=== PATIENT | female | born 1980 | race Caucasian/White ===

== ENCOUNTER 2016-05-08 10:21 | Emergency (ER) | payer MEDICAID ==
[~2016-05-08] VITALS: Ht 175.3 cm; Wt 93.2 kg
[~2016-05-08 10:21] MED LIST: ATIVAN 0.50.5 MG/TAB PO; AVIANE; BUSPAR DIVIDOSE15 MG PO; BUT/APAP/CAFF/C1 CAP PO; CELEXA; CELEXA10 MG PO; CELEXA40 MG PO; CITALOPRAM HYDR40 MG PO; CYMBALTA30 MG PO; EFFEXOR 3737.5 MG/TA PO; FERROUS SULFATE65 MG PO; KLONOPIN 0.5MG0.5 MG; LEXAPRO10 MG PO; LORTAB 5/500 501 TAB PO; MIRENA52 MG IU; MOTRIN 600600 MG/TAB PO; MULTIPLE VITAMI1 CAP PO; NO HOME MEDICATIONS; NORCO 325 MG-51 TAB PO; NUVARING1 ICR; PAMINE2.5 MG PO; PERCOCET 325 MG1 TA2 PO; PHENERGAN 25 TA25 MG PO; PHENERGAN25 MG; PHENERGAN25 MG RC; PRENATAL VITAMI1 TA5 PO; PRENATAL1 TA4 PO; PROTONIX20 MG PO; REGLAN 10MG/11 MG/ML; REGLAN 10MG10 MG/TAB PO; SINGULAIR10 MG PO; TOPAMAX50 MG PO; TYLENOL 500MG500 MG PO; VALIUM5 MG PO; VENTOLIN0.09 MG IH; WELLBUTRIN XL300 M1; ZOFRAN 4MG T4 MG/TAB PO; ZOFRAN ODT4 MG PO; ZOLOFT 50MG50 MG; [UNRECOGNIZED DRUG - OTHER] PO
[2016-05-08 10:25] VITALS: BP 134/70; PULSE 77; TEMP 99
[2016-05-08] MEDS ORDERED: PRISTIQ100 MG PO (10:44)
[2016-05-08] MEDS ORDERED: TAMIFLU 75MG75 MG PO (10:52)
== END 2016-05-08 11:24 | disposition home or self-care (01) ==
LOC: COL.ER 10:21
DX: J11.1 Influenza due to unidentified influenza virus with other respiratory manifestations (principal)

== ENCOUNTER → 2016-10-04 | Outpatient (CLI) | payer BC ==
[~2016-10-04] MED LIST changes: +PRISTIQ100 MG PO; +TAMIFLU 75MG75 MG PO
== END ==
LOC: COL.LAB 09-29 14:15
DX: Z00.5 Encounter for examination of potential donor of organ and tissue (principal)

== ENCOUNTER → 2017-01-12 | Outpatient (CLI) | payer BC | LOC: COL.LAB 13:36 | DX: Z00.5 Encounter for examination of potential donor of organ and tissue (principal) ==

== ENCOUNTER 2017-05-23 18:53 | Emergency (ER) | payer MEDICAID ==
[~2017-05-23] VITALS: Ht 175.3 cm; Wt 106.8 kg
[2017-05-23 19:01] VITALS: TEMP 99.3
[2017-05-23] MEDS ORDERED: FIORINAL 325 MG1 CAP PO (21:20)
[2017-05-23] MEDS ORDERED: XANAX 0.5MG0.5 MG PO (21:21)
[2017-05-23 21:41] LABS: BASO % 0.2 % (0.0-2.0); EOS % 0.1 % (0-4.0); GRAN # 12.2 (1.4-6.5); GRAN % 94.2 % (42.2-75.2); HEMATOCRIT 46.3 % (37.0-47.0); HEMOGLOBIN 15.3 g/dl (12.5-16.0); LYMPH # 0.3 (1.2-3.4); LYMPH % 1.9 % (20.0-51.0); MEAN CELL VOLUME 87 fl (80.0-100.0); MEAN CORPUSCULAR HEMOGLOBIN 29 pg (27.0-31.0); MEAN CORPUSCULAR HGB CONC 33 g/dl (33.0-37.0); MEAN PLATELET VOLUME 10.3 fl (7.4-10.4); MONO # 0.4 (0.1-0.6); MONO % 3.4 % (1.7-9.3); PLATELET COUNT 215 K/mm3 (130-400); RED BLOOD COUNT 5.33 M/mm3 (4.10-5.30); REDCELL DISTRIBUTION WIDTH-CV 12.8 % (11.5-14.5)
[2017-05-23 21:51] LABS: ALBUMIN 4.9 gm/dL (3.5-5.0); BILIRUBIN,TOTAL 0.6 mg/dL (0.0-1.0); CREATININE, serum 0.86 mg/dL (0.52-1.25); TOTAL PROTEIN 7.6 gm/dL (6.4-8.2)
[2017-05-23] MEDS ORDERED: ZOFRAN ODT4 MG PO (22:26)
[2017-05-23 23:05] VITALS: BP 114/76; PULSE 87
== END 2017-05-23 23:06 | disposition home or self-care (01) ==
LOC: COL.ER 18:53
PROVIDERS: Emergency Medicine
DX: G43.909 Migraine, unspecified, not intractable, without status migrainosus (principal); R11.2 Nausea with vomiting, unspecified; F32.9 Major depressive disorder, single episode, unspecified; F41.9 Anxiety disorder, unspecified; Z88.2 Allergy status to sulfonamides
CPT/HCPCS: J1885; J2060; J2405; J2550; J7030

== ENCOUNTER 2018-08-25 10:37 | Emergency (ER) | payer MEDICAID ==
[~2018-08-25] VITALS: Ht 175.3 cm; Wt 112.3 kg
[~2018-08-25 10:37] MED LIST changes: +FIORINAL 325 MG1 CAP PO; +XANAX 0.5MG0.5 MG PO
[2018-08-25 10:43] VITALS: TEMP 99.2
[2018-08-25 11:43] LABS: BASO % 0.4 % (0.0-2.0); EOS # 0.1 (0.0-0.7); EOS % 0.9 % (0-4.0); GRAN # 3.9 (1.4-6.5); GRAN % 57.6 % (42.2-75.2); HEMATOCRIT 39.2 % (37.0-47.0); HEMOGLOBIN 12.8 g/dl (12.5-16.0); LYMPH # 2.1 (1.2-3.4); MEAN CELL VOLUME 88 fl (80.0-100.0); MEAN CORPUSCULAR HEMOGLOBIN 29 pg (27.0-31.0); MEAN CORPUSCULAR HGB CONC 33 g/dl (33.0-37.0); MEAN PLATELET VOLUME 10.4 fl (7.4-10.4); MONO # 0.7 (0.1-0.6); PLATELET COUNT 238 K/mm3 (130-400); RED BLOOD COUNT 4.45 M/mm3 (4.10-5.30)
[2018-08-25 11:50] LABS: ALANINE AMINOTRANSFERASE 26 U/L (9-52); ALBUMIN 4.2 gm/dL (3.5-5.0); ALKALINE PHOSPHATASE 52 U/L (50-136); ANION GAP 9 mmol/L (7-16); AST,SGOT 45 U/L (15-37); BILIRUBIN,TOTAL 0.3 mg/dL (0.0-1.0); BLOOD UREA NITROGEN 12 mg/dL (7-17); CARBON DIOXIDE 26 mmol/L (22-30); CHLORIDE 103 mmol/L (98-107); CREATININE, serum 0.72 (0.52-1.25); GLUCOSE 94 mg/dL (74-106); POTASSIUM 3.9 mmol/L (3.4-5.0); SODIUM 138 mmol/L (137-145); TOTAL PROTEIN 7.4 gm/dL (6.4-8.2)
[2018-08-25 12:05] LABS: TROPONIN-I < 0.012 ng/mL (0.000-0.035)
[2018-08-25 12:53] VITALS: BP 126/85; PULSE 75
== END 2018-08-25 12:53 | disposition home or self-care (01) ==
LOC: COL.ER 10:37
PROVIDERS: Emergency Medicine
DX: R20.2 Paresthesia of skin (principal); F41.9 Anxiety disorder, unspecified; Z79.82 Long term (current) use of aspirin
CPT/HCPCS: J2060; J2405; J7030

== ENCOUNTER 2019-04-09 09:09 | Emergency (ER) | payer MEDICAID ==
[~2019-04-09] VITALS: Ht 175.3 cm; Wt 100.0 kg
[2019-04-09 10:05] LABS: BASO % 0.5 % (0.0-2.0); EOS # 0.1 (0.0-0.7); EOS % 0.9 % (0-4.0); GRAN # 4.5 (1.4-6.5); GRAN % 69.5 % (42.2-75.2); HEMATOCRIT 43.8 % (37.0-47.0); HEMOGLOBIN 14.3 g/dl (12.5-16.0); LYMPH # 1.4 (1.2-3.4); LYMPH % 21.5 % (20.0-51.0); MEAN CELL VOLUME 88 fl (80.0-100.0); MEAN CORPUSCULAR HEMOGLOBIN 29 pg (27.0-31.0); MEAN CORPUSCULAR HGB CONC 33 g/dl (33.0-37.0); MEAN PLATELET VOLUME 10.4 fl (7.4-10.4); MONO # 0.5 (0.1-0.6); MONO % 7.3 % (1.7-9.3); PLATELET COUNT 238 K/mm3 (130-400); RED BLOOD COUNT 4.99 M/mm3 (4.10-5.30); REDCELL DISTRIBUTION WIDTH-CV 12.5 % (11.5-14.5)
[2019-04-09 10:51] LABS: ALANINE AMINOTRANSFERASE 19 U/L (9-52); ALBUMIN 4.6 gm/dL (3.5-5.0); ALKALINE PHOSPHATASE 57 U/L (50-136); ANION GAP 8 mmol/L (7-16); AST,SGOT 16 U/L (15-37); BILIRUBIN,TOTAL 0.5 mg/dL (0.0-1.0); BLOOD UREA NITROGEN 10 mg/dL (7-17); CALCIUM 9.4 mg/dL (8.4-10.2); CARBON DIOXIDE 28 mmol/L (22-30); CHLORIDE 104 mmol/L (98-107); GLUCOSE 105 mg/dL (74-106); POTASSIUM 4.1 mmol/L (3.4-5.0); SODIUM 141 mmol/L (137-145); TOTAL PROTEIN 7.4 gm/dL (6.4-8.2)
[2019-04-09 11:03] LABS: TROPONIN-I < 0.012 ng/mL (0.000-0.035)
[2019-04-09 11:15] LABS: COLLECTION METHOD CLEAN CATCH
[2019-04-09 11:49] LABS: MUCOUS Present /lpf; PH 5 (5-8); URINE APPEARANCE Cloudy; URINE BACTERIA None Seen /hpf; URINE BILIRUBIN Negative (NEGATIVE); URINE BLOOD Negative (NEGATIVE); URINE COLOR Yellow; URINE GLUCOSE Negative (NEGATIVE); URINE KETONE 1+ (NEGATIVE); URINE LEUKOCYTE ESTERASE Trace (NEGATIVE); URINE NITRATE Negative (NEGATIVE); URINE PROTEIN(semi-quant) 1+ (NEGATIVE); URINE RBC 0-2 /hpf; URINE UROBILINOGEN Negative (NEGATIVE)
[2019-04-09] MEDS ORDERED: OMNICEF 300MG300 MG PO (13:10)
[2019-04-09] MEDS ORDERED: ZOFRAN ODT8 MG PO (13:20)
[2019-04-09 13:30] VITALS: BP 118/76; PULSE 76; TEMP 98.6
[2019-04-10] MEDS ORDERED: ANTIVERT 12.512.5 MG PO (15:44)
== END 2019-04-09 13:30 | disposition home or self-care (01) ==
LOC: COL.ER 09:09
PROVIDERS: Emergency Medicine
DX: N39.0 Urinary tract infection, site not specified (principal); Z79.82 Long term (current) use of aspirin
CPT/HCPCS: A4216; J0696; J1885; J2270; J2405; J2550; J7030

== ENCOUNTER 2019-04-10 13:38 | Emergency (ER) | payer MEDICAID ==
[~2019-04-10] VITALS: Ht 175.3 cm; Wt 104.5 kg
[~2019-04-10 13:38] MED LIST changes: +OMNICEF 300MG300 MG PO; +ZOFRAN ODT8 MG PO
[2019-04-10 13:53] VITALS: BP 142/77; TEMP 98.5
[2019-04-10 15:03] LABS: ALANINE AMINOTRANSFERASE 19 U/L (9-52); ALBUMIN 4.1 gm/dL (3.5-5.0); ALKALINE PHOSPHATASE 46 U/L (50-136); ANION GAP 7 mmol/L (7-16); AST,SGOT 19 U/L (15-37); BILIRUBIN,TOTAL 0.4 mg/dL (0.0-1.0); BLOOD UREA NITROGEN 10 mg/dL (7-17); CARBON DIOXIDE 28 mmol/L (22-30); CHLORIDE 107 mmol/L (98-107); GLUCOSE 94 mg/dL (74-106); POTASSIUM 4.2 mmol/L (3.4-5.0); SODIUM 141 mmol/L (137-145); TOTAL PROTEIN 6.7 gm/dL (6.4-8.2)
[2019-04-10 15:11] LABS: C-REACTIVE PROTEIN < 0.5 mg/dL (0.0-0.9)
[2019-04-10 15:21] LABS: BASO % 0.6 % (0.0-2.0); EOS # 0.1 (0.0-0.7); EOS % 1.1 % (0-4.0); GRAN # 3.4 (1.4-6.5); HEMATOCRIT 40.2 % (37.0-47.0); LYMPH # 1.4 (1.2-3.4); LYMPH % 26.1 % (20.0-51.0); MEAN CELL VOLUME 88 fl (80.0-100.0); MEAN CORPUSCULAR HEMOGLOBIN 29 pg (27.0-31.0); MEAN CORPUSCULAR HGB CONC 32 g/dl (33.0-37.0); MEAN PLATELET VOLUME 10.8 fl (7.4-10.4); MONO # 0.4 (0.1-0.6); PLATELET COUNT 222 K/mm3 (130-400); RED BLOOD COUNT 4.56 M/mm3 (4.10-5.30); REDCELL DISTRIBUTION WIDTH-CV 12.5 % (11.5-14.5)
[2019-04-10] MEDS ORDERED: ANTIVERT 12.512.5 MG PO (15:44)
[2019-04-10 15:47] VITALS: PULSE 72
== END 2019-04-10 15:57 | disposition home or self-care (01) ==
LOC: COL.ER 13:38
PROVIDERS: Physician Assistant
DX: R42 Dizziness and giddiness (principal); F32.9 Major depressive disorder, single episode, unspecified; Z79.82 Long term (current) use of aspirin; Z88.2 Allergy status to sulfonamides; W19.XXXA Unspecified fall, initial encounter
CPT/HCPCS: J1885; J2060; J2405; J7030

== ENCOUNTER 2020-04-05 15:46 | Outpatient (CLI) | payer MEDICAID ==
[~2020-04-05] VITALS: Ht 175.3 cm; Wt 120.0 kg
[~2020-04-05 15:46] MED LIST changes: +ANTIVERT 12.512.5 MG PO
--- NOTE | 2020-04-05 15:50 | NUR ---
1550- 28.0, G3L2 arrive on unit with c/o headache and increased bp. Ambulatory to LDR4. Oriented to room. Clean catch ua obtained. Patient to bed in wedge left position. 1602- EFM explained and placed. Patient reports normal movement. Denies any LOF, VB, or contractions. Assessment completed. VS obtained. 1625- Labs obtained.
[2020-04-05 16:04] LABS: COLLECTION METHOD CLEAN CATCH
[2020-04-05 16:06] VITALS: BP 117/62; PULSE 102; TEMP 99.1
[2020-04-05 16:09] LABS: MUCOUS Present /lpf; PH 6 (5-8); SQUAMOUS EPITHELIAL 0-2 /hpf; URINE APPEARANCE Clear; URINE BACTERIA None Seen /hpf; URINE BILIRUBIN Negative (NEGATIVE); URINE BLOOD Negative (NEGATIVE); URINE COLOR Yellow; URINE GLUCOSE 1+ (NEGATIVE); URINE KETONE Negative (NEGATIVE); URINE LEUKOCYTE ESTERASE Negative (NEGATIVE); URINE NITRATE Negative (NEGATIVE); URINE PROTEIN(semi-quant) Negative (NEGATIVE); URINE RBC 0-2 /hpf; URINE UROBILINOGEN Negative (NEGATIVE); URINE WBC 0-2 /hpf
[2020-04-05] MEDS ORDERED: PRENATAL VITAMI1 TA3 PO (16:15)
[2020-04-05] MEDS ORDERED: UNISOM25 MG PO (16:15)
[2020-04-05] MEDS ORDERED: PRISTIQ 50 MG T50 MG PO (16:16)
[2020-04-05 16:30] VITALS: BP 123/60; PULSE 99
[2020-04-05 16:44] LABS: BASO % 0.1 % (0.0-2.0); EOS # 0.1 (0.0-0.7); EOS % 0.7 % (0-4.0); GRAN # 5.1 (1.4-6.5); GRAN % 69.8 % (42.2-75.2); HEMATOCRIT 31.5 % (37.0-47.0); HEMOGLOBIN 10.3 g/dl (12.5-16.0); LYMPH # 1.5 (1.2-3.4); LYMPH % 20.5 % (20.0-51.0); MEAN CELL VOLUME 87 fl (80.0-100.0); MEAN CORPUSCULAR HEMOGLOBIN 29 pg (27.0-31.0); MEAN CORPUSCULAR HGB CONC 33 g/dl (33.0-37.0); MEAN PLATELET VOLUME 10.3 fl (7.4-10.4); MONO # 0.6 (0.1-0.6); MONO % 8.8 % (1.7-9.3); PLATELET COUNT 232 K/mm3 (130-400); RED BLOOD COUNT 3.61 M/mm3 (4.10-5.30); REDCELL DISTRIBUTION WIDTH-CV 13.5 % (11.5-14.5)
[2020-04-05 17:00] VITALS: BP 113/56; PULSE 88
[2020-04-05 17:00] LABS: ALBUMIN 3.2 gm/dL (3.5-5.0); BILIRUBIN,TOTAL 0.1 mg/dL (0.0-1.0); CALCIUM 9.1 mg/dL (8.4-10.2); CREATININE, serum 0.57 (0.52-1.25); POTASSIUM 3.6 mmol/L (3.4-5.0); TOTAL PROTEIN 6.2 gm/dL (6.4-8.2)
--- NOTE | 2020-04-05 17:10 | NUR ---
1710- Phone call received from Dr. Romero. See physician notification. RN at bedside holding EFM for tracing. 1716- EFM removed. Patient up to bathroom to change. 1725- Discharge instructions reviewed with patient and spouse who verbalize understanding. Ambulatory off unit to private vehicle.
== END 2020-04-05 17:25 | disposition home or self-care (01) ==
LOC: LDRO 15:46
PROVIDERS: Student in an Organized Health Care Education/Training Program
DX: O26.893 Other specified pregnancy related conditions, third trimester (principal); R51.9 Headache, unspecified; R03.0 Elevated blood-pressure reading, without diagnosis of hypertension

== ENCOUNTER 2020-05-21 16:42 | Outpatient (CLI) | payer MEDICAID ==
[~2020-05-21 16:42] MED LIST changes: +PRENATAL VITAMI1 TA3 PO; +PRISTIQ 50 MG T50 MG PO; +UNISOM25 MG PO
[2020-05-21 17:00] VITALS: PULSE 70; TEMP 98.1
[2020-05-21 17:36] VITALS: BP 126/61; PULSE 70
--- NOTE | 2020-05-21 17:38 | NUR ---
1730 NO CHANGES NOTED AT THIS TIME
[2020-05-21 17:52] VITALS: BP 122/67; PULSE 71
--- NOTE | 2020-05-21 17:52 | NUR ---
1745 NO CHANGES AT THIS TIME
--- NOTE | 2020-05-21 17:55 | NUR ---
SVE per Jhon- closed and no change. Patient given discharge instructions, agrees with plan and signs papers. 1757: Patient off monitors to change
== END 2020-05-21 18:05 | disposition home or self-care (01) ==
LOC: LDRO → LDR 16:45 → LDRO 18:05
DX: O26.893 Other specified pregnancy related conditions, third trimester (principal); R25.2 Cramp and spasm; Z3A.34 34 weeks gestation of pregnancy
CPT/HCPCS: OP

== ENCOUNTER 2020-06-06 18:41 | Outpatient (CLI) | payer MEDICAID ==
[~2020-06-06] VITALS: Ht 172.7 cm; Wt 125.0 kg
--- NOTE | 2020-06-06 19:05 | NUR ---
Pt arrived on unit escorted by and with complaints of elevated blood pressures at home and headache. Pt reports occasional contractions, denies any leaking of fluid or bleeding and reports normal movement. EFM and toco monitors started. Serial blood pressures started. SVE done by this RN /. Orders received from Dr. Garcia for serial BPs and labs received. Plan of care reviewed with pt and at the bedside.
[2020-06-06 19:27] LABS: COLLECTION METHOD CLEAN CATCH
[2020-06-06 19:31] LABS: BASO % 0.3 % (0.0-2.0); EOS # 0.1 (0.0-0.7); EOS % 0.8 % (0-4.0); GRAN % 66.7 % (42.2-75.2); HEMOGLOBIN 11.3 g/dl (12.5-16.0); LYMPH # 1.7 (1.2-3.4); MEAN CELL VOLUME 88 fl (80.0-100.0); MEAN CORPUSCULAR HEMOGLOBIN 28 pg (27.0-31.0); MEAN CORPUSCULAR HGB CONC 32 g/dl (33.0-37.0); MEAN PLATELET VOLUME 10.8 fl (7.4-10.4); MONO # 0.7 (0.1-0.6); MONO % 8.8 % (1.7-9.3); PLATELET COUNT 208 K/mm3 (130-400); RED BLOOD COUNT 4.02 M/mm3 (4.10-5.30); REDCELL DISTRIBUTION WIDTH-CV 14.4 % (11.5-14.5)
[2020-06-06 19:36] LABS: MUCOUS Present /lpf; PH 5 (5-8); URINE APPEARANCE Hazy; URINE BACTERIA None Seen /hpf; URINE BILIRUBIN Negative (NEGATIVE); URINE BLOOD Negative (NEGATIVE); URINE CALCIUM OXALATE CRYSTAL Present /hpf; URINE COLOR Yellow; URINE GLUCOSE Negative (NEGATIVE); URINE KETONE Trace (NEGATIVE); URINE LEUKOCYTE ESTERASE Negative (NEGATIVE); URINE NITRATE Negative (NEGATIVE); URINE PROTEIN(semi-quant) 1+ (NEGATIVE); URINE RBC 0-2 /hpf; URINE UROBILINOGEN Negative (NEGATIVE); URINE WBC 0-2 /hpf
[2020-06-06 19:36] LABS: HEMATOCRIT 35.5 % (37.0-47.0)
[2020-06-06] MEDS ORDERED: NATURAL IRON65 MG (19:39)
[2020-06-06 19:43] LABS: ALBUMIN 3.3 gm/dL (3.5-5.0); BILIRUBIN,TOTAL 0.2 mg/dL (0.0-1.0); CALCIUM 8.9 mg/dL (8.4-10.2); CREATININE, serum 0.65 (0.52-1.25); POTASSIUM 3.7 mmol/L (3.4-5.0); TOTAL PROTEIN 6.2 gm/dL (6.4-8.2)
[2020-06-06 20:00] VITALS: BP 142/86; PULSE 77; TEMP 98.7
--- NOTE | 2020-06-06 20:20 | NUR ---
Discharge instructions reviewed with pt and . Both verbalized an understanding, agreed with the plan and state no questions or concerns at this time.
[2020-06-06 20:25] VITALS: BP 139/82; PULSE 72
== END 2020-06-06 20:40 | disposition home or self-care (01) ==
LOC: LDRO 18:41 → LDR 18:41 → LDRO 18:56 → LDR 18:56 → LDRO 20:40 → LDR 20:40 → LDRO 21:13
PROVIDERS: Obstetrics & Gynecology
DX: O13.3 Gestational [pregnancy-induced] hypertension without significant proteinuria, third trimester (principal); Z3A.36 36 weeks gestation of pregnancy
CPT/HCPCS: OP

== ENCOUNTER 2020-06-08 17:14 | Outpatient (CLI) | payer MEDICAID ==
[~2020-06-08] VITALS: Ht 172.7 cm; Wt 126.8 kg
[~2020-06-08 17:14] MED LIST changes: +NATURAL IRON65 MG
[2020-06-08 18:00] VITALS: BP 147/87; PULSE 88; TEMP 99.3
[2020-06-08 18:30] VITALS: BP 166/89; PULSE 80
--- NOTE | 2020-06-08 18:30 | NUR ---
1830 TYLENOL 500MG AND VISTARIL 25 MG PO GIVEN PER DRS ORDERS. UP TO BR AND VOIDED. RETURNED TO BED AND RESTING ON LEFT SIDE.
--- NOTE | 2020-06-08 18:31 | NUR ---
Pt arrives to unit at 1733 with complaints of contractions every 5-6 minutes, blood pressures with systolic readings over 150 at home, a constant headache with blurry vision that was not relieved by Tylenol, and thinks that her water is broken because she "has had runny clear discharge today and had to change underwear several times". Pt placed on EFM monitors, vitals taken, assessment done. SVE /, AmnioTest negative. Dr. Romero notified at 1818. See physician notification. Orders recieved to give pt 500mg Tylenol and 25mg Visteril with water, keep pt 1 hour with BP checks every 15 minutes, and repeat SVE.
[2020-06-08 18:45] VITALS: BP 123/58; PULSE 70
[2020-06-08 19:00] VITALS: BP 113/59; PULSE 68
[2020-06-08 19:15] VITALS: BP 115/57; PULSE 74
--- NOTE | 2020-06-08 19:25 | NUR ---
1924 SVE /-3. C/O OCC CONTRACTION FELT BUT STATES IS FEELING BETTER. HEADACHE STILL REMAINS BUT IS A LITTLE BETTER. 0 DR ROBBINS NOTIFIED AND ORDER TO DISMISS RECEIVED. 1950 HOME WITH INSTRUCTIONS.
== END 2020-06-08 19:50 | disposition home or self-care (01) ==
LOC: LDRO 17:14 → LDR 18:31 → LDRO 18:31 → LDR 19:50 → LDRO 19:50
DX: O62.9 Abnormality of forces of labor, unspecified (principal); O13.3 Gestational [pregnancy-induced] hypertension without significant proteinuria, third trimester; Z3A.37 37 weeks gestation of pregnancy
CPT/HCPCS: OP

== ENCOUNTER 2020-06-12 12:20 | Inpatient (IN) | payer MEDICAID ==
[~2020-06-12] VITALS: Ht 172.7 cm; Wt 128.2 kg
[2020-06-12] VITALS (29 sets, daily range): BP systolic 120–166; BP diastolic 71–96; PULSE 67–90; TEMP 98.2–98.3
--- NOTE | 2020-06-12 12:53 | NUR ---
1245- Pt arrives on unit ambulatory for induction. Pt into bathroom, changes into gown. 1253- Pt into bed. EFM and TOCO on and tracing. Plan of care explained. Pt denies questions. Pt denies VB, LOF, regular contractions. +FM movement per Pt. Pt denies having a headache currently, dizziness, visual disturbances. Assessment completed. IV start with labs drawn. IVF bolus initiated. 1319- Dr Roles at bedside. Discusses plan of care. Questions answered.
[2020-06-12 13:35] LABS: BASO % 0.3 % (0.0-2.0); EOS % 0.3 % (0-4.0); GRAN # 5.2 (1.4-6.5); GRAN % 74.3 % (42.2-75.2); LYMPH # 1.3 (1.2-3.4); LYMPH % 18.1 % (20.0-51.0); MEAN CELL VOLUME 88 fl (80.0-100.0); MEAN CORPUSCULAR HEMOGLOBIN 28 pg (27.0-31.0); MEAN CORPUSCULAR HGB CONC 32 g/dl (33.0-37.0); MEAN PLATELET VOLUME 11.5 fl (7.4-10.4); MONO # 0.5 (0.1-0.6); MONO % 6.7 % (1.7-9.3); PLATELET COUNT 209 K/mm3 (130-400); RED BLOOD COUNT 3.92 M/mm3 (4.10-5.30); REDCELL DISTRIBUTION WIDTH-CV 14.4 % (11.5-14.5)
[2020-06-12 13:36] LABS: HEMATOCRIT 34.5 % (37.0-47.0)
[2020-06-12 13:45] LABS: ALANINE AMINOTRANSFERASE 14 U/L (4-34); ALBUMIN 3.3 gm/dL (3.5-5.0); ALKALINE PHOSPHATASE 110 U/L (50-136); ANION GAP 8 mmol/L (7-16); AST,SGOT 23 U/L (15-37); BILIRUBIN,TOTAL < 0.1 mg/dL (0.0-1.0); BLOOD UREA NITROGEN 9 mg/dL (7-17); CALCIUM 8.5 mg/dL (8.4-10.2); CARBON DIOXIDE 20 mmol/L (22-30); CHLORIDE 105 mmol/L (98-107); CREATININE, serum 0.62 (0.52-1.25); GLUCOSE 108 mg/dL (74-106); POTASSIUM 3.5 mmol/L (3.4-5.0); SODIUM 134 mmol/L (137-145); TOTAL PROTEIN 6.2 gm/dL (6.4-8.2)
--- NOTE | 2020-06-12 21:50 | NUR ---
Disucssed plan of care options with pt and spouse. Continuing Pitocin vs stopping Pitocin and initiating [employer] ripening. Questions invited and answered. Pt and spouse agree to [employer] ripening. Pitocin gtt off, Pt off monitor to move about room and have a snack
[2020-06-13] VITALS (42 sets, daily range): BP systolic 119–166; BP diastolic 60–108; PULSE 55–112; TEMP 97.9–99.5
--- NOTE | 2020-06-13 06:30 | NUR ---
0630-Recieved report from JOLANTA Arredondo. Patient on EFM sitting HF. LH INT. Recently off monitor from [id number] in bathroom. 0710-SVE unchanged, Pitocin started per MD order, see EMAR. 0727- Roles updated, see MD notification. 0741-IV labetalol given per MD orders, see EMAR. Provided PB and toast per MD orders.
--- NOTE | 2020-06-13 08:50 | NUR ---
0850- Roles on unit. Reviews FHR monitor and BP's, In to see patient. 0856-SVE by AROM clear fluid /3. Updated on plan of care.
--- NOTE | 2020-06-13 09:27 | NUR ---
ESSIE Dueñas notified of patients request for epidural. Updated Dr. Gibbs who remains on unit at this time.
--- NOTE | 2020-06-13 10:05 | NUR ---
1005-Patient sitting upright on side of bed for epidural placement. Difficulty tracing FHR due to maternal positioning. 1014-Test dose administered by Katherin Saez CRNA, see anesthesia record. Patient tolerated procedure well, VSS. 1025-Patient WL. Pitocin reduced to 4mu/min due to contractions tracing via toco every 1 min and patient continuing to have discomfort with contractions. 1045-Dr. Gibbs on unit. SVE by /-1. Pit reduced to 2 mu/min. Instructed patient to utilize epidural [employer]OR for breakthrough contraction pain. 1050-Nix to DD, clear yellow urine.
--- NOTE | 2020-06-13 11:30 | NUR ---
1130-SVE by who remains on unit 0. Repositon LL and notified ESSIE Dueñas of patients continued Left sided pain with contractions. ESSIE Dueñas in route to room. 1135-ESSIE Dueñas doses patient, see anesthesia record. 1158-SVE by . /+2
--- NOTE | 2020-06-13 14:15 | NUR ---
1200-Nix discontinued, Set up for delivery. 1205-Paitent begins pushing with MD. Moves vertex very well. 1206-Spontaneous delivery of head, nuchal x2 reduced by MD. Patient continues to push with contraction with spontaneous delivery of body. mouth and nares bulb suctioned and placed on mothers abdomen. Viable female infant cord clamped x2 and cut by FOB. Care of assumed by JOLANTA Crook. Apgars 8/9/9. Second degree perineal laceration repaired by MD. 1214-Spontaneous delivery of intact placenta by MD. Fundal massage firm, Lochia WNL,EBL 300ml. Pitocin bolus per MD order and protocol. Hilaria care provided and updated on plan of care and safety.
[2020-06-14 02:45] VITALS: BP 161/93; PULSE 73; TEMP 98.5
[2020-06-14 03:20] VITALS: BP 138/84; PULSE 84
[2020-06-14 07:40] VITALS: BP 156/82; PULSE 77; TEMP 98.3
[2020-06-14 08:03] VITALS: BP 138/84
[2020-06-14] MEDS ORDERED: PERCOCET 325 MG1 TA2 PO (08:49)
[2020-06-14] MEDS ORDERED: MOTRIN 600600 MG/TAB PO (08:49)
[2020-06-14 11:57] VITALS: BP 145/91; PULSE 100; TEMP 98.8
--- NOTE | 2020-06-14 12:02 | NUR ---
Rating pain in abd 3/10, sore, and would like Percocet. Administer Percocet as prescribed. Patient is trying to breastfeed. BP was a little elevated, patient will call when her baby is settled to have it reassessed. Spouse in room. Denies additional needs.
[2020-06-14 12:33] VITALS: BP 132/81
== END 2020-06-14 14:00 | disposition home or self-care (01) | DRG 807 ==
LOC: OB 12:20 → LDR 12:39 → OB 06-13 16:30
PROVIDERS: ADMIT Obstetrics & Gynecology
PROC: 10E0XZZ Delivery of Products of Conception, External Approach (ICD-10-PCS; principal; 2020-06-13)
PROC: 0KQM0ZZ Repair Perineum Muscle, Open Approach (ICD-10-PCS; 2020-06-13)
PROC: 10907ZC Drainage of Amniotic Fluid, Therapeutic from Products of Conception, Via Natural or Artificial Opening (ICD-10-PCS; 2020-06-13)
PROC: 3E033VJ Introduction of Other Hormone into Peripheral Vein, Percutaneous Approach (ICD-10-PCS; 2020-06-13)
DX: O13.4 Gestational [pregnancy-induced] hypertension without significant proteinuria, complicating childbirth (principal); Z37.0 Single live birth; O99.214 Obesity complicating childbirth; E66.9 Obesity, unspecified; O99.344 Other mental disorders complicating childbirth; F41.9 Anxiety disorder, unspecified; F32.9 Major depressive disorder, single episode, unspecified; O69.81X0 Labor and delivery complicated by cord around neck, without compression, not applicable or unspecified; O70.1 Second degree perineal laceration during delivery; Z3A.37 37 weeks gestation of pregnancy
CPT/HCPCS: J2590; J7120

== ENCOUNTER 2020-09-29 12:32 | Emergency (ER) | payer MEDICAID ==
[~2020-09-29] VITALS: Ht 175.3 cm; Wt 120.5 kg
[2020-09-29 13:15] LABS: BASO % 0.5 % (0.0-2.0); EOS # 0.2 (0.0-0.7); EOS % 2.6 % (0-4.0); GRAN # 5.2 (1.4-6.5); GRAN % 62.5 % (42.2-75.2); HEMATOCRIT 40.5 % (37.0-47.0); HEMOGLOBIN 13.1 g/dl (12.5-16.0); LYMPH # 2.3 (1.2-3.4); MEAN CELL VOLUME 85 fl (80.0-100.0); MEAN CORPUSCULAR HEMOGLOBIN 28 pg (27.0-31.0); MEAN CORPUSCULAR HGB CONC 32 g/dl (33.0-37.0); MEAN PLATELET VOLUME 10.1 fl (7.4-10.4); MONO # 0.6 (0.1-0.6); PLATELET COUNT 301 K/mm3 (130-400); RED BLOOD COUNT 4.77 M/mm3 (4.10-5.30)
[2020-09-29 13:23] LABS: PROTHROMBIN TIME 10.9 SECONDS (9.7-12.8)
[2020-09-29 13:26] LABS: ALBUMIN 4.4 gm/dL (3.5-5.0); BILIRUBIN,TOTAL 0.2 mg/dL (0.0-1.0); CALCIUM 9.7 mg/dL (8.4-10.2); CREATININE, serum 0.99 (0.52-1.25); POTASSIUM 4.3 mmol/L (3.4-5.0); TOTAL PROTEIN 7.7 gm/dL (6.4-8.2)
[2020-09-29 13:27] LABS: COLLECTION METHOD CLEAN CATCH
[2020-09-29] MEDS ORDERED: CELEBREX 200MG200 MG PO (13:33)
[2020-09-29 13:35] LABS: MUCOUS Present /lpf; PH 5 (5-8); SQUAMOUS EPITHELIAL 0-2 /hpf; URINE APPEARANCE Hazy; URINE BACTERIA None Seen /hpf; URINE BILIRUBIN Negative (NEGATIVE); URINE BLOOD Negative (NEGATIVE); URINE COLOR Yellow; URINE GLUCOSE Negative (NEGATIVE); URINE KETONE Negative (NEGATIVE); URINE LEUKOCYTE ESTERASE 2+ (NEGATIVE); URINE NITRATE Negative (NEGATIVE); URINE PROTEIN(semi-quant) Negative (NEGATIVE); URINE RBC 0-2 /hpf; URINE UROBILINOGEN Negative (NEGATIVE)
[2020-09-29 14:36] VITALS: BP 121/75; PULSE 82
== END 2020-09-29 14:42 | disposition home or self-care (01) ==
LOC: COL.ER 12:32
PROVIDERS: Physician Assistant
DX: H53.122 Transient visual loss, left eye (principal); G43.009 Migraine without aura, not intractable, without status migrainosus; F32.9 Major depressive disorder, single episode, unspecified; Z88.8 Allergy status to other drugs, medicaments and biological substances; Z88.2 Allergy status to sulfonamides
CPT/HCPCS: J7030

== ENCOUNTER 2021-01-14 11:56 | Emergency (ER) | payer MEDICAID ==
[~2021-01-14] VITALS: Ht 175.3 cm; Wt 116.4 kg
[~2021-01-14 11:56] MED LIST changes: +CELEBREX 200MG200 MG PO
[2021-01-14 12:01] VITALS: TEMP 98.6
[2021-01-14 12:41] LABS: BASO % 0.3 % (0.0-2.0); EOS # 0.1 K/mm3 (0.0-0.7); GRAN # 3.9 K/mm3 (1.4-6.5); GRAN % 68.1 % (42.2-75.2); HEMATOCRIT 43.8 % (37.0-47.0); HEMOGLOBIN 14.5 g/dl (12.5-16.0); LYMPH # 1.4 K/mm3 (1.2-3.4); LYMPH % 23.6 % (20.0-51.0); MEAN CELL VOLUME 84 fl (80.0-100.0); MEAN CORPUSCULAR HEMOGLOBIN 28 pg (27.0-31.0); MEAN CORPUSCULAR HGB CONC 33 g/dl (33.0-37.0); MEAN PLATELET VOLUME 10.1 fl (7.4-10.4); MONO # 0.4 K/mm3 (0.1-0.6); MONO % 6.8 % (1.7-9.3); PLATELET COUNT 293 K/mm3 (130-400); RED BLOOD COUNT 5.22 M/mm3 (4.10-5.30); REDCELL DISTRIBUTION WIDTH-CV 12.7 % (11.5-14.5)
[2021-01-14 12:55] LABS: COLLECTION METHOD CLEAN CATCH
[2021-01-14 13:02] LABS: MUCOUS Present /lpf; PH 6 (5-8); SQUAMOUS EPITHELIAL 0-2 /hpf; URINE APPEARANCE Hazy; URINE BACTERIA None Seen /hpf; URINE BILIRUBIN Negative (NEGATIVE); URINE BLOOD Negative (NEGATIVE); URINE COLOR Amber; URINE GLUCOSE Negative (NEGATIVE); URINE KETONE Trace (NEGATIVE); URINE LEUKOCYTE ESTERASE Negative (NEGATIVE); URINE NITRATE Negative (NEGATIVE); URINE PROTEIN(semi-quant) Negative (NEGATIVE); URINE RBC 0-2 /hpf; URINE UROBILINOGEN Negative (NEGATIVE)
[2021-01-14 13:05] LABS: ALANINE AMINOTRANSFERASE 35 U/L (0-55); ALBUMIN 4.5 gm/dL (3.5-5.0); ALKALINE PHOSPHATASE 87 U/L (40-150); ANION GAP 14 mmol/L (7-16); AST,SGOT 22 U/L (5-34); BILIRUBIN,TOTAL 0.5 mg/dL (0.2-1.2); BLOOD UREA NITROGEN 14 mg/dL (7-19); CARBON DIOXIDE 23 mmol/L (22-29); CHLORIDE 106 mmol/L (98-107); CREATININE, serum 0.98 mg/dL (0.57-1.11); GLUCOSE 109 mg/dL (70-99); POTASSIUM 4.4 mmol/L (3.5-4.5); SODIUM 143 mmol/L (136-145); TOTAL PROTEIN 7.5 gm/dL (6.2-8.1)
[2021-01-14 13:06] LABS: ACETAMINOPHEN < 1.0 ug/mL (10-30); ALCOHOL(ethanol),MEDICAL < 10 mg/dL (0-10); SALICYLATE < 5.0 mg/dL (15.0-30.0)
[2021-01-14 13:11] LABS: TRICYCLIC ANTIDEPRESS URINE NEGATIVE
[2021-01-14 13:24] LABS: TSH w REFLEX 0.823 uIU/mL (0.350-4.940)
[2021-01-14 16:05] VITALS: BP 145/98; PULSE 89
== END 2021-01-14 16:05 | disposition home or self-care (01) ==
LOC: COL.ER 11:56
PROVIDERS: Nurse Practitioner Primary Care
DX: F41.9 Anxiety disorder, unspecified (principal); F32.A Depression, unspecified; H53.122 Transient visual loss, left eye; Z88.8 Allergy status to other drugs, medicaments and biological substances; Z79.899 Other long term (current) drug therapy

== ENCOUNTER 2021-03-05 10:45 | Emergency (ER) | payer MEDICAID ==
[~2021-03-05] VITALS: Ht 175.3 cm; Wt 113.6 kg
[2021-03-05 11:11] VITALS: TEMP 98.3
[2021-03-05 11:18] LABS: COLLECTION METHOD CLEAN CATCH
[2021-03-05 11:24] LABS: MUCOUS Present (NOT PRESENT); PH 5 (5-8); URINE APPEARANCE Hazy (CLEAR/HAZY); URINE BACTERIA None Seen /hpf (NONE SEEN); URINE BILIRUBIN Negative (NEGATIVE); URINE BLOOD Negative (NEGATIVE); URINE COLOR Amber (YELLOW); URINE GLUCOSE Negative (NEGATIVE); URINE KETONE Trace (NEGATIVE); URINE LEUKOCYTE ESTERASE Negative (NEGATIVE); URINE NITRATE Negative (NEGATIVE); URINE PROTEIN(semi-quant) Negative (NEGATIVE); URINE RBC 0-2 /hpf (0-2); URINE UROBILINOGEN Negative (NEGATIVE)
[2021-03-05 11:33] LABS: BASO % 0.3 % (0.0-2.0); EOS # 0.1 K/mm3 (0.0-0.7); GRAN % 68.6 % (42.2-75.2); HEMATOCRIT 40.6 % (37.0-47.0); HEMOGLOBIN 13.3 g/dl (12.5-16.0); LYMPH # 1.5 K/mm3 (1.2-3.4); MEAN CELL VOLUME 86 fl (80.0-100.0); MEAN CORPUSCULAR HEMOGLOBIN 28 pg (27-31); MEAN CORPUSCULAR HGB CONC 33 g/dl (33.0-37.0); MEAN PLATELET VOLUME 10.1 fl (7.4-10.4); MONO # 0.6 K/mm3 (0.1-0.6); MONO % 8.8 % (1.7-9.3); PLATELET COUNT 234 K/mm3 (130-400); RED BLOOD COUNT 4.75 M/mm3 (4.10-5.30); REDCELL DISTRIBUTION WIDTH-CV 13.1 % (11.5-14.5)
[2021-03-05 11:55] LABS: BILIRUBIN,TOTAL 0.5 mg/dL (0.2-1.2); C-REACTIVE PROTEIN 0.63 mg/dL (0.00-0.50); CALCIUM 8.8 mg/dL (8.4-10.2); CREATININE, serum 0.78 mg/dL (0.57-1.11); TOTAL PROTEIN 6.6 gm/dL (6.2-8.1)
[2021-03-05 12:04] LABS: POTASSIUM 3.6 mmol/L (3.5-4.5)
[2021-03-05] MEDS ORDERED: NORCO 325 MG-51 TAB PO (14:06)
[2021-03-05] MEDS ORDERED: CIPRO 500MG TA500 MG PO (14:06)
[2021-03-05] MEDS ORDERED: FLAGYL500 MG PO (14:06)
[2021-03-05] MEDS ORDERED: ZOFRAN ODT4 MG PO (14:06)
[2021-03-05 18:52] VITALS: BP 150/103; PULSE 69
== END 2021-03-05 14:00 | disposition home or self-care (01) ==
LOC: COL.ER 10:45
PROVIDERS: Nurse Practitioner
DX: K52.9 Noninfective gastroenteritis and colitis, unspecified (principal); F32.A Depression, unspecified; Z32.02 Encounter for pregnancy test, result negative; Z79.899 Other long term (current) drug therapy
CPT/HCPCS: J1170; J2405; J7030; Q9967

== ENCOUNTER 2021-04-18 09:33 | Emergency (ER) | payer BC, MEDICAID ==
[~2021-04-18] VITALS: Ht 175.3 cm; Wt 104.5 kg
[~2021-04-18 09:33] MED LIST changes: +CIPRO 500MG TA500 MG PO; +FLAGYL500 MG PO
[2021-04-18 09:48] VITALS: TEMP 98.6
[2021-04-18 10:39] LABS: COLLECTION METHOD CLEAN CATCH
[2021-04-18 10:42] LABS: BASO % 0.5 % (0.0-2.0); EOS # 0.2 K/mm3 (0.0-0.7); EOS % 2.5 % (0.0-4.0); GRAN # 3.9 K/mm3 (1.4-6.5); GRAN % 65.9 % (42.2-75.2); HEMATOCRIT 39.9 % (37.0-47.0); HEMOGLOBIN 13.1 g/dl (12.5-16.0); LYMPH # 1.4 K/mm3 (1.2-3.4); LYMPH % 23.4 % (20.0-51.0); MEAN CELL VOLUME 86 fl (80.0-100.0); MEAN CORPUSCULAR HEMOGLOBIN 28 pg (27-31); MEAN CORPUSCULAR HGB CONC 33 g/dl (33.0-37.0); MEAN PLATELET VOLUME 9.7 fl (7.4-10.4); MONO # 0.4 K/mm3 (0.1-0.6); MONO % 7.4 % (1.7-9.3); PLATELET COUNT 300 K/mm3 (130-400); RED BLOOD COUNT 4.65 M/mm3 (4.10-5.30); REDCELL DISTRIBUTION WIDTH-CV 12.8 % (11.5-14.5)
[2021-04-18 10:52] LABS: MUCOUS Present (NOT PRESENT); PH 5 (5-8); URINE APPEARANCE Hazy (CLEAR/HAZY); URINE BACTERIA None Seen /hpf (NONE SEEN); URINE BILIRUBIN Negative (NEGATIVE); URINE BLOOD Negative (NEGATIVE); URINE COLOR Yellow (YELLOW); URINE GLUCOSE Negative (NEGATIVE); URINE KETONE Negative (NEGATIVE); URINE LEUKOCYTE ESTERASE Negative (NEGATIVE); URINE NITRATE Negative (NEGATIVE); URINE PROTEIN(semi-quant) Negative (NEGATIVE); URINE RBC 0-2 /hpf (0-2); URINE UROBILINOGEN Negative (NEGATIVE)
[2021-04-18 11:07] LABS: BILIRUBIN,TOTAL 0.4 mg/dL (0.2-1.2); C-REACTIVE PROTEIN 0.59 mg/dL (0.00-0.50); CREATININE, serum 0.85 mg/dL (0.57-1.11); POTASSIUM 3.9 mmol/L (3.5-4.5); TOTAL PROTEIN 6.9 gm/dL (6.2-8.1)
[2021-04-18 13:04] VITALS: BP 135/97; PULSE 70
[2021-04-18] MEDS ORDERED: ZOFRAN ODT4 MG PO (13:04)
== END 2021-04-18 13:04 | disposition home or self-care (01) ==
LOC: COL.ER 09:33
PROVIDERS: Nurse Practitioner Primary Care
DX: R10.31 Right lower quadrant pain (principal); R10.32 Left lower quadrant pain; R11.0 Nausea; Z32.02 Encounter for pregnancy test, result negative
CPT/HCPCS: J1885; J2405; J7030; Q9967

== ENCOUNTER 2021-04-27 11:46 | Emergency (ER) | payer BC, MEDICAID ==
[~2021-04-27] VITALS: Ht 175.3 cm; Wt 104.5 kg
[2021-04-27 11:55] VITALS: TEMP 99
[2021-04-27 12:10] LABS: COLLECTION METHOD CLEAN CATCH
[2021-04-27 12:17] LABS: MUCOUS Present (NOT PRESENT); PH 5 (5-8); SQUAMOUS EPITHELIAL 0-2 /hpf (0-10); URINE APPEARANCE Hazy (CLEAR/HAZY); URINE BACTERIA Rare /hpf (NONE SEEN); URINE BILIRUBIN Negative (NEGATIVE); URINE BLOOD Negative (NEGATIVE); URINE COLOR Yellow (YELLOW); URINE GLUCOSE Negative (NEGATIVE); URINE KETONE 2+ (NEGATIVE); URINE LEUKOCYTE ESTERASE Negative (NEGATIVE); URINE NITRATE Negative (NEGATIVE); URINE PROTEIN(semi-quant) Negative (NEGATIVE); URINE RBC 0-2 /hpf (0-2); URINE UROBILINOGEN Negative (NEGATIVE)
[2021-04-27 12:43] LABS: BASO % 0.4 % (0.0-2.0); EOS % 0.5 % (0.0-4.0); GRAN # 3.9 K/mm3 (1.4-6.5); GRAN % 69.7 % (42.2-75.2); HEMATOCRIT 42.2 % (37.0-47.0); HEMOGLOBIN 13.7 g/dl (12.5-16.0); LYMPH # 1.2 K/mm3 (1.2-3.4); LYMPH % 21.8 % (20.0-51.0); MEAN CELL VOLUME 87 fl (80.0-100.0); MEAN CORPUSCULAR HEMOGLOBIN 28 pg (27-31); MEAN CORPUSCULAR HGB CONC 33 g/dl (33.0-37.0); MEAN PLATELET VOLUME 10.3 fl (7.4-10.4); MONO # 0.4 K/mm3 (0.1-0.6); MONO % 7.4 % (1.7-9.3); PLATELET COUNT 272 K/mm3 (130-400); RED BLOOD COUNT 4.87 M/mm3 (4.10-5.30)
[2021-04-27 12:58] LABS: ALBUMIN 4.2 gm/dL (3.5-5.0); BILIRUBIN,TOTAL 0.6 mg/dL (0.2-1.2); C-REACTIVE PROTEIN 0.12 mg/dL (0.00-0.50); CALCIUM 9.1 mg/dL (8.4-10.2); CREATININE, serum 0.91 mg/dL (0.57-1.11); POTASSIUM 4.1 mmol/L (3.5-4.5); TOTAL PROTEIN 6.9 gm/dL (6.2-8.1)
[2021-04-27] MEDS ORDERED: PHENERGAN 25 TA25 MG PO (13:47)
[2021-04-27 14:20] VITALS: BP 118/77; PULSE 57
== END 2021-04-27 14:20 | disposition home or self-care (01) ==
LOC: COL.ER 11:46
PROVIDERS: Family Medicine; Nurse Practitioner
DX: R10.84 Generalized abdominal pain (principal); R11.2 Nausea with vomiting, unspecified
CPT/HCPCS: J2550; J7030

== ENCOUNTER → 2021-05-08 | Outpatient (CLI) | payer BC, MEDICAID | LOC: COL.RAD 09:07 | DX: R10.30 Lower abdominal pain, unspecified (principal); K62.5 Hemorrhage of anus and rectum; R93.5 Abnormal findings on diagnostic imaging of other abdominal regions, including retroperitoneum; R19.7 Diarrhea, unspecified | CPT/HCPCS: A9537; J2805 ==

== ENCOUNTER 2021-05-29 06:55 | Day surgery (SDC) | payer BC, MEDICAID ==
[~2021-05-29] VITALS: Ht 175.3 cm; Wt 98.5 kg
[2021-05-29 07:33] VITALS: BP 118/79; PULSE 77; TEMP 98.2
[2021-05-29] MEDS ORDERED: LYLEQ0.35 MG PO (07:56)
[2021-05-29] MEDS ORDERED: CYMBALTA 30MG30 MG PO (07:56)
[2021-05-29] MEDS ORDERED: ONE-A-DAY ESSE1 EACH PO (07:57)
[2021-05-29] MEDS ORDERED: NORCO 325 MG-51 TAB PO (09:40)
[2021-05-29 10:30] VITALS: BP 122/68; PULSE 63; TEMP 97.4
[2021-05-29 10:45] VITALS: BP 123/68; PULSE 72
[2021-05-29 10:50] VITALS: BP 117/68; PULSE 71
--- NOTE | 2021-05-29 12:00 | NUR ---
1030 PT RETURNED TO BAY 7 VIA CART. ALERT AND ORIENTED. VSS. DENIES NAUSEA. PT REPORTS PAIN 4/10. RR 12 PER MINUTE. WARM BLANKET APPLIED TO ABDOMEN. INSTRUCTED PT TO SPLINT WHILE COUGHING. OPERATIVE SITES ARE CLEAN AND DRY. JUICE AND CRACKERS PROVIDED. 1045 PT TOLERATING FOOD AND DRINK WELL. PT REPORTS PAIN 4/10. RR 12/MIN. OFFERED PT TO TRY ICE. 1050 PT SITTING UP IN BED. ALERT AND ORIENTED. REPORTS PAIN 5/10. RR 15/MIN. 1200 PT UN TO RESTROOM, ABLE TO VOID WITHOUT COMPLICATION. ONE OPERATIVE SITE SEEPING. PT BACK IN BED. [address] FISHER, TO REINFORCE DRESSING AND APPLY PRESSURE. BLEED STOPPED. GAVE EXTRA SUPPLIES AND INSTRUCTED PT TO APPLY PRESSURE IF SEEPING RETURNS. INSTRUCTED TO CALL PHYSICIAN IN BLEEDING DOES NOT IMPROVE OR INCREASES. 1220 REVIEWED DISCHARGE INSTRUCTIONS, EDUCATION MATERIAL, F/U APT AND ANSWRED ALL QUESTIONS. 1230 TRANSFERED PT VIA WHEEL CHAIR TO PERSONAL VEHICLE TO BE DRIVEN HOME BY .
== END 2021-05-29 12:30 | disposition home or self-care (01) ==
LOC: SDCO 06:55
DX: K81.1 Chronic cholecystitis (principal); R93.2 Abnormal findings on diagnostic imaging of liver and biliary tract
CPT/HCPCS: J0690; J1170; J1800; J1885; J2405; J2704; J3010; J7120

== ENCOUNTER 2021-10-21 10:50 | Emergency (ER) | payer BC, MEDICAID ==
[~2021-10-21] VITALS: Ht 175.3 cm; Wt 92.7 kg
[~2021-10-21 10:50] MED LIST changes: +CYMBALTA 30MG30 MG PO; +LYLEQ0.35 MG PO; +ONE-A-DAY ESSE1 EACH PO
[2021-10-21 11:41] LABS: BASO % 0.6 % (0.0-2.0); EOS # 0.1 K/mm3 (0.0-0.7); EOS % 2.2 % (0.0-4.0); GRAN # 3.1 K/mm3 (1.4-6.5); GRAN % 57.3 % (42.2-75.2); HEMOGLOBIN 14.3 g/dl (12.5-16.0); LYMPH # 1.8 K/mm3 (1.2-3.4); LYMPH % 33.6 % (20.0-51.0); MEAN CELL VOLUME 89 fl (80.0-100.0); MEAN CORPUSCULAR HEMOGLOBIN 29 pg (27-31); MEAN CORPUSCULAR HGB CONC 33 g/dl (33.0-37.0); MEAN PLATELET VOLUME 9.9 fl (7.4-10.4); MONO # 0.3 K/mm3 (0.1-0.6); MONO % 6.3 % (1.7-9.3); PLATELET COUNT 264 K/mm3 (130-400); RED BLOOD COUNT 4.95 M/mm3 (4.10-5.30); REDCELL DISTRIBUTION WIDTH-CV 12.4 % (11.5-14.5)
[2021-10-21 11:43] LABS: COLLECTION METHOD CLEAN CATCH
[2021-10-21 11:53] LABS: URINE APPEARANCE Clear (CLEAR/HAZY); URINE COLOR Yellow (YELLOW)
[2021-10-21 11:54] LABS: MUCOUS Present (NOT PRESENT); PH 5 (5-8); URINE BACTERIA Rare /hpf (NONE SEEN); URINE BLOOD Negative (NEGATIVE); URINE GLUCOSE 1+ (NEGATIVE); URINE KETONE Negative (NEGATIVE); URINE NITRATE Negative (NEGATIVE); URINE PROTEIN(semi-quant) Negative (NEGATIVE); URINE RBC 0-2 /hpf (0-2); URINE UROBILINOGEN Negative (NEGATIVE)
[2021-10-21 11:58] LABS: ALANINE AMINOTRANSFERASE 17 U/L (0-55); ALBUMIN 4.2 gm/dL (3.5-5.0); ALCOHOL(ethanol),MEDICAL < 10 mg/dL (0-10); ALKALINE PHOSPHATASE 69 U/L (40-150); ANION GAP 12 mmol/L (7-16); AST,SGOT 13 U/L (5-34); BILIRUBIN,TOTAL 0.6 mg/dL (0.2-1.2); BLOOD UREA NITROGEN 10 mg/dL (7-19); CALCIUM 9.3 mg/dL (8.4-10.2); CARBON DIOXIDE 22 mmol/L (22-29); CHLORIDE 108 mmol/L (98-107); CREATININE, serum 0.83 mg/dL (0.57-1.11); GLUCOSE 104 mg/dL (70-99); POTASSIUM 3.8 mmol/L (3.5-4.5); SALICYLATE < 5.0 mg/dL (15.0-30.0); SODIUM 142 mmol/L (136-145); TOTAL PROTEIN 7.1 gm/dL (6.2-8.1)
[2021-10-21 12:11] LABS: TRICYCLIC ANTIDEPRESS URINE NEGATIVE
[2021-10-21 14:33] LABS: ACETAMINOPHEN < 1.0 ug/mL (10-30)
[2021-10-21 19:11] VITALS: BP 143/83; PULSE 70; TEMP 98
== END 2021-10-21 19:07 ==
LOC: COL.ER 10:50
PROVIDERS: Physician Assistant
DX: F41.9 Anxiety disorder, unspecified (principal); R45.851 Suicidal ideations; F32.A Depression, unspecified; Z20.822 Contact with and (suspected) exposure to COVID-19

== ENCOUNTER 2023-07-20 07:08 | Emergency (ER) | payer BC, MEDICAID ==
[~2023-07-20] VITALS: Ht 175.3 cm; Wt 122.7 kg
[2023-07-20 07:11] VITALS: TEMP 98.7
[2023-07-20] MEDS ORDERED: Ondansetron 4 MG/2 ML VIAL IV ONE (07:40)
[2023-07-20] MEDS ORDERED: Morphine 4 MG/ML VIAL IV ONE (07:40)
[2023-07-20 12:20] VITALS: BP 114/67; PULSE 71
[2023-07-20] MEDS ORDERED: NS 100 ML IV SCH (20:00)
[2023-07-20] MEDS ORDERED: Iohexol 300 - 100 ML VIAL IV ONE (20:00)
== END 2023-07-20 12:20 | disposition home or self-care (01) ==
LOC: COL.ER 07:08
DX: R10.31 Right lower quadrant pain (principal); Z87.19 Personal history of other diseases of the digestive system
CPT/HCPCS: J2270; J2405; Q9967

== ENCOUNTER 2023-09-11 06:30 | Emergency (ER) | payer BC, MEDICAID ==
[~2023-09-11] VITALS: Ht 175.3 cm; Wt 114.5 kg
[2023-09-11 06:44] VITALS: TEMP 98.3
[2023-09-11] MEDS ORDERED: LR 1,000 ML IV ONE (07:15)
[2023-09-11] MEDS ORDERED: Ketorolac 30 MG/ML VIAL IV ONE (07:15)
[2023-09-11] MEDS ORDERED: Ondansetron 4 MG/2 ML VIAL IV ONE (07:15)
[2023-09-11 07:22] LABS: BASO % 0.2 % (0.0-2.0); EOS # 0.2 K/mm3 (0.0-0.7); EOS % 3.2 % (0.0-4.0); GRAN # 3.8 K/mm3 (1.4-6.5); GRAN % 64.2 % (42.2-75.2); HEMATOCRIT 45.3 % (37.0-47.0); HEMOGLOBIN 14.8 g/dl (12.5-16.0); LYMPH # 1.3 K/mm3 (1.2-3.4); MEAN CELL VOLUME 86 fl (80.0-100.0); MEAN CORPUSCULAR HEMOGLOBIN 28 pg (27-31); MEAN CORPUSCULAR HGB CONC 33 g/dl (33.0-37.0); MEAN PLATELET VOLUME 9.8 fl (7.4-10.4); MONO # 0.6 K/mm3 (0.1-0.6); MONO % 10.2 % (1.7-9.3); PLATELET COUNT 299 K/mm3 (130-400); RED BLOOD COUNT 5.28 M/mm3 (4.10-5.30); REDCELL DISTRIBUTION WIDTH-CV 12.8 % (11.5-14.5)
[2023-09-11 07:40] LABS: ALBUMIN 4.3 g/dL (3.5-5.0); BILIRUBIN,TOTAL 0.9 mg/dL (0.2-1.2); CALCIUM 8.6 mg/dL (8.4-10.2); CREATININE, serum 0.84 mg/dL (0.57-1.11); POTASSIUM 3.4 mEq/L (3.5-4.5); TOTAL PROTEIN 7.3 g/dl (6.2-8.1)
[2023-09-11] MEDS ORDERED: ZOFRAN ODT4 MG PO (08:59)
[2023-09-11 09:13] VITALS: BP 124/74; PULSE 88
== END 2023-09-11 09:13 | disposition home or self-care (01) ==
LOC: COL.ER 06:30
PROVIDERS: Emergency Medicine
DX: R11.2 Nausea with vomiting, unspecified (principal); R19.7 Diarrhea, unspecified
CPT/HCPCS: J1885; J2405; J7120

== ENCOUNTER 2023-11-27 10:58 | Emergency (ER) | payer BC, MEDICAID ==
[~2023-11-27] VITALS: Ht 175.3 cm; Wt 104.5 kg
[2023-11-27 11:28] LABS: BASO # 0.1 K/mm3 (0.0-0.2); BASO % 0.7 % (0.0-2.0); EOS # 0.5 K/mm3 (0.0-0.7); EOS % 7.5 % (0.0-4.0); GRAN # 4.6 K/mm3 (1.4-6.5); HEMATOCRIT 42.5 % (37.0-47.0); HEMOGLOBIN 14.3 g/dl (12.5-16.0); LYMPH # 1.5 K/mm3 (1.2-3.4); LYMPH % 20.4 % (20.0-51.0); MEAN CELL VOLUME 87 fl (80.0-100.0); MEAN CORPUSCULAR HEMOGLOBIN 29 pg (27-31); MEAN CORPUSCULAR HGB CONC 34 g/dl (33.0-37.0); MEAN PLATELET VOLUME 9.7 fl (7.4-10.4); MONO # 0.5 K/mm3 (0.1-0.6); MONO % 7.1 % (1.7-9.3); PLATELET COUNT 292 K/mm3 (130-400); RED BLOOD COUNT 4.89 M/mm3 (4.10-5.30); REDCELL DISTRIBUTION WIDTH-CV 12.6 % (11.5-14.5)
[2023-11-27] MEDS ORDERED: NS 1,000 ML IV ONE (11:30)
[2023-11-27] MEDS ORDERED: Ondansetron 4 MG/2 ML VIAL IV ONE (11:30)
[2023-11-27] MEDS ORDERED: LAMICTAL 100MG100 MG PO (11:30)
[2023-11-27] MEDS ORDERED: Morphine 4 MG/ML VIAL IV ONE (11:30)
[2023-11-27] MEDS ORDERED: ZEPBOUND10 MG/0.5 SQ (11:31)
[2023-11-27] MEDS ORDERED: GLUCOPHAGE500 MG/TAB PO (11:31)
[2023-11-27] MEDS ORDERED: AMOXICILLIN/CLA1 TA1 PO (11:32)
[2023-11-27] MEDS ORDERED: FLAGYL500 MG PO (11:32)
[2023-11-27 11:45] LABS: ALBUMIN 4.1 g/dL (3.5-5.0); BILIRUBIN,TOTAL 0.6 mg/dL (0.2-1.2); CALCIUM 9.4 mg/dL (8.4-10.2); CREATININE, serum 0.86 mg/dL (0.57-1.11); TOTAL PROTEIN 6.8 g/dl (6.2-8.1)
[2023-11-27 11:53] LABS: POTASSIUM 4.2 mEq/L (3.5-4.5)
[2023-11-27 12:11] LABS: C-REACTIVE PROTEIN 0.86 mg/dL (0.00-0.50)
[2023-11-27 12:15] LABS: COLLECTION METHOD CLEAN CATCH
[2023-11-27 12:30] LABS: URINE APPEARANCE CLEAR (CLEAR/HAZY); URINE BLOOD NEGATIVE (NEGATIVE); URINE COLOR YELLOW (YELLOW); URINE GLUCOSE NEGATIVE (NEGATIVE); URINE KETONE 1+ (NEGATIVE); URINE NITRATE NEGATIVE (NEGATIVE); URINE PROTEIN(semi-quant) NEGATIVE (NEGATIVE)
[2023-11-27 12:46] LABS: URINE BACTERIA RARE /hpf (NONE SEEN); URINE RBC 0-2 /hpf (0-2); URINE WBC 0-2 /hpf (0-2)
[2023-11-27 13:44] VITALS: BP 133/89; PULSE 88; TEMP 98.2
== END 2023-11-27 14:25 | disposition home or self-care (01) ==
LOC: COL.ER 10:58
PROVIDERS: Nurse Practitioner
DX: R10.2 Pelvic and perineal pain (principal)
CPT/HCPCS: J2270; J2405; J7030